=== PATIENT | male | born 1985 | race Caucasian/White ===

== ENCOUNTER 2022-09-29 11:35 | Emergency (ER) | payer MEDICAID ==
[~2022-09-29] VITALS: Ht 185.4 cm; Wt 120.0 kg
[2022-09-29 11:53] VITALS: BP 138/96
== END 2022-09-29 15:33 | disposition left against medical advice (07) ==
LOC: ER 11:35
DX: Z53.21 Procedure and treatment not carried out due to patient leaving prior to being seen by health care provider (principal)
CPT/HCPCS: 93005

== ENCOUNTER 2022-10-11 14:15 | Emergency (ER) | payer MEDICAID ==
[~2022-10-11] VITALS: Ht 185.4 cm; Wt 120.0 kg
[2022-10-11 14:21] VITALS: BP 158/93
[2022-10-11] MEDS: IBUPROFEN 600MG TABLET PO STA (16:02)
[2022-10-11] MEDS ORDERED: HYDR12.54 MT (16:07)
[2022-10-11] MEDS ORDERED: IBUP-2029 MT (16:08)
== END 2022-10-11 16:40 | disposition home or self-care (01) ==
LOC: ER 14:15
DX: R07.89 Other chest pain (principal); E78.00 Pure hypercholesterolemia, unspecified; I10 Essential (primary) hypertension
CPT/HCPCS: 71045; 93005; 99283